=== PATIENT | male | born 1965 | race Caucasian/White ===

== ENCOUNTER 2020-04-22 10:50 | Observation (INO) ==
[2020-04-22 11:15] LABS: Basophils # (auto) 0.05 K/uL (0-0.2); Basophils % (auto) 0.9 %; Eosinophils # (auto) 0.08 K/uL (0-0.5); Eosinophils % (auto) 1.4 %; Hematocrit (blood only) 45.6 % (42-52); Immature Granulocytes # (auto) 0.01 K/uL (0.00-0.02); Immature Granulocytes % (auto) 0.2 %; Lymphocytes % (auto) 27.4 %; Mean Corpuscular Hemoglobin 30.4 pg (25-34); Mean Corpuscular Hgb Conc 35.1 g/dL (32-36); Mean Corpuscular Volume 86.5 fL (80-100); Mean Platelet Volume 9.2 fL (7.4-10.4); Monocytes # (auto) 0.59 K/uL (0.11-0.59); Monocytes % (auto) 10.1 %; Platelet Count 253 K/uL (130-400); RDW Coefficient of Variation 12.9 % (11.5-14.5); RDW Standard Deviation 40.9 fL (36.4-46.3); Red Blood Count 5.27 M/uL (4.7-6.1); White Blood Count 5.83 K/uL (4.8-10.8)
--- NOTE | 2020-04-22 11:21 | Emergency Department Note ---
Impression & Plan Chest pain ED Provider Note NAME: CINDY MCKEON AGE: 55 SEX: M : 1965 ARRIVES VIA: Walk-In INFORMANT: Patient, ED PROVIDER(S): Beni Carrillo MD Chief Complaint: Chest pain HPI: She does present with a concern for chest pain. The patient states that he was hiking up a steep incline yesterday and did describe some left-sided chest discomfort that did radiate to the left arm. Described as sharp in nature. No nausea or vomiting, fevers, chills, diaphoresis. The patient denies any history of heart or lung disease. The patient is a non-smoker no recent surgeries or procedures and no lower extremity swelling. Patient denies any history of blood clots in the legs of the lungs. The patient does have family history of heart attack in his father as well as stroke in his brother before the age of 65. Patient currently has no chest pains. The patient states his initial bout of chest pain lasted approximate 1 hour and dissipated after he stopped hiking. It was not completely gone at that time but was much improved. The patient today has no chest pains. No dietary changes. ROS: See HPI for pertinent positives and negatives. A total of 10 systems were reviewed and otherwise negative. Past medical history: See below Surgical history: See below Social history: See below Physical Exam: GENERAL: Wearing glasses and a mask. NAD, non-toxic. EYE EXAM: Normal conjunctiva. PERRL, no anisocoria and EOM's grossly intact w/o pain. NECK: Supple, no nuchal rigidity, no adenopathy, non-tender. No signs of meningismus. LUNGS: Clear to auscultation. Normal chest wall mechanics. HEART: NSR, no MRG. ABDOMEN: Abdomen soft, non-tender, normo-active bowel sounds, no masses, no rebound or guarding. BACK: No CVA TTP. SKIN: No rashes and no bruising. UPPER EXTREMITIES: Upper extremities are grossly normal. LOWER EXTREMITIES: Grossly normal, no edema. NEURO EXAM: A&O x3, cranial nerves II-XII grossly intact, normal speech, moves all 4 extremities on command w/o issue. Differential diagnoses: Cardiac ischemia, aortic dissection, pulmonary embolism, pneumothorax, pneumonia, pericarditis, myocarditis, esophageal rupture, GERD, cholecystitis, pancreatitis, musculoskeletal, as well as other pathologies. Course: Patient was seen and evaluated the bedside. Full history physical exam was performed. EKG: Indication: Chest pains Normal sinus rhythm, rate of 60, normal intervals, normal axis, T wave inversion in lead III, possible T wave inversion in V2. Slight depressions in the lateral leads. No priors for comparison. Imaging Studies: Radiology results as stated below per my review in the radiologist's interpretation: SINGLE VIEW CHEST CLINICAL HISTORY: Atypical chest pain. FINDINGS: An AP, portable, upright chest radiograph is compared obtained. No prior studies are available for comparison at the time of dictation. The cardiomediastinal silhouette is unremarkable. The lungs and pleural spaces are clear. No pneumothorax is seen. The bony thorax is grossly intact. IMPRESSION: No active disease in the chest. ACT 112: Negative or not required by law. Electronically signed by: José Antonio Sagastume M.D. 04/22/2020 11:45 AM Dictated: 04/22/20 1145 Transcribed: 04/22/20 1145 Cardiac monitoring: An order was placed for continuous cardiac monitoring. The monitor shows a rate of 65 with sinus rhythm. MDM: Patient does present with concern for chest pains. Blood work is obtained along with an EKG troponin chest x-ray. The patient has no active symptoms. The patient did take a baby aspirin which he does take preventatively this morning. Patient's EKG does show some T wave inversions and depressions. The patient does not have any active chest pains. Troponin is undetectable. Patient's other blood work is unremarkable. Patient does have a heart score of 6 and believe the patient may benefit from inpatient treatment and testing at this time. I did speak the on-call hospitalist agreed to further evaluate treat the patient. Patient was admitted to medicine service. Patient was ordered the rest of a full dose aspirin. No active chest pains. Patient was told to advise staff if the patient does have a recurrence of chest pain. Patient understood. Past Med/Surg History Medical History H/O: HTN (hypertension) Surgical History No pertinent past surgical history Family History (Updated 09/19/20 @ 14:33 by Amina Adrian DO) Other Heart disease Hypertension Stroke Social History (Updated 04/22/20 @ 14:34 by Amina Adrian DO) Smoking Status: Former smoker Age Quit Using Tobacco: 20; Years Smoked: 3; Number of Years Since Quit: 35; Hx Alcohol Use: No Hx Substance Use: No Preferred Language: Hungarian Communication Ability: Effective Beliefs That Will Affect Care: None marital status: Current Living Situation: Spouse current occupational status: employed current occupation: machinest Other Information That Helps Us Care for You: No Feels Safe at Home: Yes Safety Concerns: Feels Safe At This Time Physical Activity Frequency: Daily Allergies Allergies Allergy/AdvReac Type Severity Reaction Status Date / Time No Known Allergies Allergy Unverified 04/22/20 12:22 Home Meds Home Medications Medication Instructions Recorded Confirmed amlodipine [Norvasc] 10 mg PO QAM 04/18/19 04/22/20 aspirin 81 mg PO QAM 04/18/19 04/22/20 multivitamin 1 tab PO QAM 04/18/19 04/22/20 losartan 50 mg PO QAM 04/22/20 04/22/20 Results & Data (ED) Vital Signs Vital Signs - 24 hr 04/22/20 10:51 04/22/20 11:09 04/22/20 11:14 Temperature 36.7 C Temperature Source Oral Oral Pulse Rate 65 63 Pulse Rate [Apical] Pulse Rhythm Regular Pulse Strength Normal Respiratory Rate 16 14 Respiratory Effort / Characteristics Non-Labored Respiratory Depth Normal Respiratory Pattern Regular Blood Pressure 133/99 Blood Pressure [Left Arm] Blood Pressure Mean 110 Blood Pressure Mean [Left Arm] Blood Pressure Position Sitting Pulse Oximetry 100 Oxygen Delivery Method Room Air Room Air Sepsis Recent Fever Within 48 Hours No Sepsis New/Unexplained Change in Mental Status N/A Sepsis Action Taken by Nursing No Action Required 04/22/20 11:30 04/22/20 12:00 04/22/20 12:30 Temperature Temperature Source Pulse Rate 61 75 72 Pulse Rate [Apical] Pulse Rhythm Pulse Strength Respiratory Rate 17 17 15 Respiratory Effort / Characteristics Respiratory Depth Respiratory Pattern Blood Pressure Blood Pressure [Left Arm] Blood Pressure Mean Blood Pressure Mean [Left Arm] Blood Pressure Position Pulse Oximetry Oxygen Delivery Method Sepsis Recent Fever Within 48 Hours Sepsis New/Unexplained Change in Mental Status Sepsis Action Taken by Nursing 04/22/20 12:45 04/22/20 12:51 04/22/20 13:00 Temperature Temperature Source Pulse Rate 82 70 67 Pulse Rate [Apical] Pulse Rhythm Pulse Strength Respiratory Rate 14 7 L 15 Respiratory Effort / Characteristics Respiratory Depth Respiratory Pattern Blood Pressure 196/106 H 168/108 H 160/97 H Blood Pressure [Left Arm] Blood Pressure Mean 129 124 125 Blood Pressure Mean [Left Arm] Blood Pressure Position Pulse Oximetry Oxygen Delivery Method Sepsis Recent Fever Within 48 Hours Sepsis New/Unexplained Change in Mental Status Sepsis Action Taken by Nursing 04/22/20 13:25 04/22/20 13:30 04/22/20 13:31 Temperature Temperature Source Pulse Rate 67 66 Pulse Rate [Apical] 70 Pulse Rhythm Pulse Strength Respiratory Rate 16 15 Respiratory Effort / Characteristics Respiratory Depth Respiratory Pattern Blood Pressure 174/106 H Blood Pressure [Left Arm] 160/97 H Blood Pressure Mean 135 Blood Pressure Mean [Left Arm] 118 Blood Pressure Position Pulse Oximetry Oxygen Delivery Method Sepsis Recent Fever Within 48 Hours Sepsis New/Unexplained Change in Mental Status Sepsis Action Taken by Nursing 04/22/20 14:00 04/22/20 14:30 Temperature Temperature Source Pulse Rate 74 77 Pulse Rate [Apical] Pulse Rhythm Pulse Strength Respiratory Rate 18 16 Respiratory Effort / Characteristics Respiratory Depth Respiratory Pattern Blood Pressure 170/114 H 155/105 H Blood Pressure [Left Arm] Blood Pressure Mean 131 120 Blood Pressure Mean [Left Arm] Blood Pressure Position Pulse Oximetry Oxygen Delivery Method Sepsis Recent Fever Within 48 Hours Sepsis New/Unexplained Change in Mental Status Sepsis Action Taken by [facility] Medications Current Medication List: was personally reviewed by me Laboratory Data Attestation: I reviewed the patient's lab results. Result diagrams: 04/22/20 11:07 04/22/20 11:07 Lab Results 04/22/20 04/22/20 04/22/20 Range/Units 11:07 11:07 11:07 WBC 5.83 (4.8-10.8) K/uL RBC 5.27 (4.7-6.1) M/uL Hgb 16.0 (14.0-18.0) g/dL Hct 45.6 (42-52) % MCV 86.5 (80-100) fL MCH 30.4 (25-34) pg MCHC 35.1 (32-36) g/dL RDW Std Deviation 40.9 (36.4-46.3) fL RDW Coeff of Daphnie 12.9 (11.5-14.5) % Plt Count 253 (130-400) K/uL MPV 9.2 (7.4-10.4) fL Immature Gran % (Auto) 0.2 % Neut % (Auto) 60.0 % Lymph % (Auto) 27.4 % [place] % (Auto) 10.1 % Eos % (Auto) 1.4 % Baso % (Auto) 0.9 % Neut # (Auto) 3.50 (1.4-6.5) K/uL Lymph # (Auto) 1.60 (1.2-3.4) K/uL [place] # (Auto) 0.59 (0.11-0.59) K/uL Eos # (Auto) 0.08 (0-0.5) K/uL Baso # (Auto) 0.05 (0-0.2) K/uL Immature Gran # (Auto) 0.01 (0.00-0.02) K/uL PT 10.8 (9.0-12.0) Seconds INR 1.0 (0.9-1.1) APTT 29.1 (21.0-31.0) Seconds PTT Ratio 1.0 Sodium 139 (136-145) mmol/L Potassium 3.6 (3.5-5.1) mmol/L Chloride 108 H (98-107) mmol/L Carbon Dioxide 28 (21-32) mmol/L Anion Gap 3.0 (3-11) BUN 12 (7-18) mg/dl Creatinine 1.00 (0.6-1.4) mg/dl Est Cr Clr Drug Dosing 94.0 ml/min Est GFR ( Amer) 97.8 Est GFR (Non-Af Amer) 84.4 BUN/Creatinine Ratio 11.8 (10-20) Glucose 95 (70-99) mg/dl Calcium 8.7 (8.5-10.1) mg/dl Magnesium 2.2 (1.8-2.4) mg/dl Total Bilirubin 0.7 (0.2-1) mg/dl AST 18 (15-37) U/L ALT 36 (12-78) U/L Alkaline Phosphatase 51 (45-117) U/L Troponin I < 0.015 (0-0.045) ng/ml Total Protein 7.8 (6.4-8.2) gm/dl Albumin 4.0 (3.4-5.0) gm/dl Globulin 3.8 (2.5-4.0) gm/dl Albumin/Globulin Ratio 1.1 (0.9-2) Lipase 202 (73-393) U/L Administered Medications Discontinued Medications Aspirin (Aspirin Chew 324 Mg) 243 mg PO NOW STA Stop: 04/22/20 12:55 Last Admin: 04/22/20 13:23 Dose: 243 mg Documented by: [id number] Discharge Plan Visit Data Chief Complaint: Chest Pain Stated Complaint: CHEST PAIN HX HIGH BLOOD PRESSURE ED Provider: Beni Carrillo Discharge Problem: Chest pain Discharge Instructions Interventions: ED Discharge Assessment Last Done: 04/22/20 15:16 Forms Stand Alone Forms: [facility] [employer] Prescriptions Prescriptions: No Action multivitamin Tablet 1 tab PO QAM RF: 0 aspirin 81 mg Tablet,Delayed Release (Dr/Ec) 81 mg PO QAM RF: 0 amlodipine [Norvasc] 10 mg tablet 10 mg PO QAM RF: 0 losartan 50 mg tablet 50 mg PO QAM RF: 0 Referrals Referrals: PCP,NO [Primary Care Provider] - Discharge Problem: Chest pain Qualifiers: Chest pain type: unspecified Qualified Code(s): R07.9 - Chest pain, unspecified
[2020-04-22 11:25] LABS: Partial Thromboplastin Time 29.1 Seconds (21.0-31.0); Prothrombin Time 10.8 Seconds (9.0-12.0)
[2020-04-22 11:30] LABS: Alanine Aminotransferase 36 U/L (12-78); Aspartate Aminotransferase 18 U/L (15-37); BUN Creatinine Ratio 11.8 (10-20); Blood Urea Nitrogen 12 mg/dl (7-18); Calcium 8.7 mg/dl (8.5-10.1); Carbon Dioxide 28 mmol/L (21-32); Chloride 108 mmol/L (98-107); Est GFR (African American) 97.8; Est GFR (Non-African American) 84.4; Glucose 95 mg/dl (70-99); Lipase 202 U/L (73-393); Magnesium 2.2 mg/dl (1.8-2.4); Potassium 3.6 mmol/L (3.5-5.1); Sodium 139 mmol/L (136-145)
[2020-04-22 11:35] LABS: Albumin Globulin Ratio 1.1 (0.9-2); Alkaline Phosphatase 51 U/L (45-117); Bilirubin,Total 0.7 mg/dl (0.2-1); Globulin 3.8 gm/dl (2.5-4.0); Total Protein 7.8 gm/dl (6.4-8.2); Troponin I < 0.015 ng/ml (0-0.045)
--- NOTE | 2020-04-22 11:47 | XRay Report ---
SINGLE VIEW CHEST CLINICAL HISTORY: Atypical chest pain. FINDINGS: An AP, portable, upright chest radiograph is compared obtained. No prior studies are availa ble for comparison at the time of dictation. The cardiomediastinal silhouette is unremarkable. The l ungs and pleural spaces are clear. No pneumothorax is seen. The bony thorax is grossly intact. IMPRESSION: No active disease in the chest. ACT 112: Negative or not required by law. Electronically signed by: José Antonio Sagastume M.D. 04/22/2020 11:45 AM
[2020-04-22] MEDS ORDERED: ASPIRIN CHEW 324 MG PO STA (12:54)
--- NOTE | 2020-04-22 14:47 | History & Physical Report ---
Date of Service April 22, 2020 Assessment & Plan (1) Chest pain: Vidal Senior is a 55 yo male who presents to the hospital with c/o sharp left sided CP radiating to the left arm that lasted for 1 hour yesterday. Chest pain EKG in ED w/o acute findings Troponin negative x2. Will trend one more troponin. Cardiac stress test tomorrow. Tylenol prn for pain NTG prn for pain Will check lipid panel tomorrow morning. Encouraged patient to establish care with PCP. Hypertension Continue home amlodipine 10mg po qAM and home losartan 50mg po qAM. GERD Stable FEN/GI: Regular diet DVT PPx: Regular ambulation Disposition: Medsurge/tele Code Status: Full Code (2) GERD (gastroesophageal reflux disease): (3) Hypertension: History of Present Illness Primary Care Provider: NO PCP Vidal Senior is a 55 yo male who presented to the ED with complaint of CP. Patient reports that yesterday afternoon, around 12:00 pm, he had a sudden onset of sharp left sided CP just over the left pectoral muscle while hiking (he had been hiking for approximately 4 hours at that time). The pain radiated to the left arm; he clarifies that the arm pain was not sharp and was more dull compared to the CP. The CP was exacerbated with movement; he is unsure if deep inspiration changed the pain. Patient told his about yesterday's episode which is what prompted evaluation today. Patient reports being very physically active at baseline and yesterday's hike was not more difficult than usual. The pain resolved spontaneously about 1 hour after onset of pain. He did not have any associated SOB, nausea, vomiting, or MURPHY. Patient also denies changes in his vision, blurred vision, fever, chills, loss of taste, loss of smell, abdominal pain, change in bowel habits, leg pain, or leg swelling. Patient does admit to a hx of similar episodes in the past, sometimes occurring with increased stress/anxiety, and other times occurring with exercise. Patient did not tell his about the prior episodes and he was never medically evaluated for the prior episodes. He has a hx of GERD, described as burning midsternal CP w/ associated cough that is exacerbated with eating foods late a night; yesterday's episode was not similar to the hx of GERD. Patient's PMHx also includes HTN that is controlled with amlodipine 10mg po qAM and losartan 50mg po qAM. He does not regularly follow with PCP nor has he had recent labs. Patient is a former tobacco smoker, smoking for less than a few years, and quit ~35 years ago. No alcohol use. No other drug use. Allergies Allergy/AdvReac Type Severity Reaction Status Date / Time No Known Allergies Allergy Unverified 04/22/20 12:22 Home Medications Home Medications Medication Instructions Recorded Confirmed Type amlodipine [Norvasc] 10 mg PO QAM 04/18/19 04/22/20 History aspirin 81 mg PO QAM 04/18/19 04/22/20 History multivitamin 1 tab PO QAM 04/18/19 04/22/20 History losartan 50 mg PO QAM 04/22/20 04/22/20 History Past Med/Surg History Medical History H/O: HTN (hypertension) Surgical History No pertinent past surgical history Family History (Updated 04/22/20 @ 14:33 by Amina Adrian DO) Other Heart disease Hypertension Stroke Social History (Updated 04/22/20 @ 14:34 by Amina Adrian DO) Smoking Status: Former smoker Age Quit Using Tobacco: 20; Years Smoked: 3; Number of Years Since Quit: 35; Hx Alcohol Use: No Hx Substance Use: No Preferred Language: Turkmen Communication Ability: Effective Beliefs That Will Affect Care: None marital status: Current Living Situation: Spouse current occupational status: employed current occupation: machinest Other Information That Helps Us Care for You: No Feels Safe at Home: Yes Safety Concerns: Feels Safe At This Time Physical Activity Frequency: Daily Review of Systems 2 Constitutional: no fever, no chills and no body aches Eyes: no diplopia and no worsening vision Ear, Nose, Mouth, Throat: no hearing loss, no sore throat and no problem reported Denies loss of smell, denies loss of taste Respiratory: no cough, no change in sputum, no dyspnea and no dyspnea on exertion Cardiovascular: + chest pain with activity (resolved); no dyspnea, no lightheadedness and no calf pain Gastrointestinal: no abdominal pain, no nausea, no vomiting, no change in bowel habits and no diarrhea/loose stools Musculoskeletal: no joint pain and no swelling Neurologic: no headache(s) Physical Exam Physical Exam: GENERAL: No acute distress. Well developed and well nourished. Vital signs reviewed as above. A/O x3. EYES: PERRLA. EOMI. Anicteric sclerae. HENT: Moist mucous membranes. No pharyngeal erythema or exudates. No cervical lymphadenopathy. RESPIRATORY: Clear to auscultation bilaterally. No wheezing, rales, or rhonchi. CARDIOVASCULAR: Regular rate and rhythm. No murmurs. ABDOMEN: Soft, non-tender and non-distended. No palpable masses. Normal bowel sounds. EXTREMITIES: No edema. Non-tender. SKIN: Warm, dry. No rashes or lesions. NEUROLOGIC: No focal neurological deficits. CN II-XII grossly intact. Normal [id number] bilaterally. Normal rapid alternating movements. PSYCHIATRIC: Cooperative. Appropriate mood and affect. Results & Data Results & Data ([facility]) Vital Signs (Past 12 Hours) Vital Signs Temp Pulse Pulse Resp BP BP Pulse Ox 04/22/20 13:30 67 15 174/106 H 04/22/20 13:25 70 16 160/97 H 04/22/20 13:00 67 15 160/97 H 04/22/20 12:51 70 7 L 168/108 H 04/22/20 12:45 82 14 196/106 H 04/22/20 12:30 72 15 04/22/20 12:00 75 17 04/22/20 11:30 61 17 04/22/20 11:14 63 14 04/22/20 10:51 36.7 C 65 16 133/99 100 Laboratory Results 04/22/20 04/22/20 04/22/20 Range/Units 11:07 11:07 11:07 WBC 5.83 (4.8-10.8) K/uL RBC 5.27 (4.7-6.1) M/uL Hgb 16.0 (14.0-18.0) g/dL Hct 45.6 (42-52) % MCV 86.5 (80-100) fL MCH 30.4 (25-34) pg MCHC 35.1 (32-36) g/dL RDW Std Deviation 40.9 (36.4-46.3) fL RDW Coeff of Daphnie 12.9 (11.5-14.5) % Plt Count 253 (130-400) K/uL MPV 9.2 (7.4-10.4) fL Immature Gran % (Auto) 0.2 % Neut % (Auto) 60.0 % Lymph % (Auto) 27.4 % [place] % (Auto) 10.1 % Eos % (Auto) 1.4 % Baso % (Auto) 0.9 % Neut # (Auto) 3.50 (1.4-6.5) K/uL Lymph # (Auto) 1.60 (1.2-3.4) K/uL [place] # (Auto) 0.59 (0.11-0.59) K/uL Eos # (Auto) 0.08 (0-0.5) K/uL Baso # (Auto) 0.05 (0-0.2) K/uL Immature Gran # (Auto) 0.01 (0.00-0.02) K/uL PT 10.8 (9.0-12.0) Seconds INR 1.0 (0.9-1.1) APTT 29.1 (21.0-31.0) Seconds PTT Ratio 1.0 Sodium 139 (136-145) mmol/L Potassium 3.6 (3.5-5.1) mmol/L Chloride 108 H (98-107) mmol/L Carbon Dioxide 28 (21-32) mmol/L Anion Gap 3.0 (3-11) BUN 12 (7-18) mg/dl Creatinine 1.00 (0.6-1.4) mg/dl Est Cr Clr Drug Dosing 94.0 ml/min Est GFR ( Amer) 97.8 Est GFR (Non-Af Amer) 84.4 BUN/Creatinine Ratio 11.8 (10-20) Glucose 95 (70-99) mg/dl Calcium 8.7 (8.5-10.1) mg/dl Magnesium 2.2 (1.8-2.4) mg/dl Total Bilirubin 0.7 (0.2-1) mg/dl AST 18 (15-37) U/L ALT 36 (12-78) U/L Alkaline Phosphatase 51 (45-117) U/L Troponin I < 0.015 (0-0.045) ng/ml Total Protein 7.8 (6.4-8.2) gm/dl Albumin 4.0 (3.4-5.0) gm/dl Globulin 3.8 (2.5-4.0) gm/dl Albumin/Globulin Ratio 1.1 (0.9-2) Lipase 202 (73-393) U/L Supervising Physician Co-Signing Physician Notes I personally examined the patient and verified all antoine points of history and exam, discussed case, and agree with decision making with Dr Adrian chest pain, L sided sharp sometimes with exertion but not all the time with exertion vitals noted nad heent nc at mmm breathing unlabored no accessory msucles good effort msk/ost - L sided rib ~rib 4 inhaled, somewhat tender to push on EKG, labs noted CP - r/o ACS -doubt [place], but concering for angina due to exertional nature and male/age/HTN/unknown lipids -reassuring that it might not be angina due to rib findings and sx could be explainable by rib dysfunction as well -troponins, stress echo in AM otherwise as above
[2020-04-22] MEDS ORDERED: ALUMINUM/MAGNESIUM SUSP 30 ML UDC PO PRN (15:56)
[2020-04-22] MEDS ORDERED: POLYETHYLENE (MIRALAX) 17 GM PACK PO PRN (15:56)
[2020-04-22] MEDS ORDERED: ACETAMINOPHEN 325 MG TAB PO PRN (15:56)
[2020-04-22] MEDS ORDERED: NITROGLYCERIN SL 0.4 MG/TAB TAB SL PRN (15:56)
[2020-04-22] MEDS ORDERED: ONDANSETRON INJ 2 MG/ML 2 ML VIAL IV PRN (15:56)
[2020-04-22] MEDS ORDERED: MAGNESIUM HYDROXIDE SUSP 30 ML UDC PO PRN (15:56)
--- NOTE | 2020-04-22 16:56 | Electrocardiogram Report ---
Test Reason : Blood Pressure : / mmHG Vent. Rate : 060 BPM Atrial Rate : 060 BPM P-R Int : 162 ms QRS Dur : 102 ms QT Int : 398 ms P-R-T Axes : 045 003 030 degrees QTc Int : 398 ms Normal sinus rhythm No previous ECGs available Confirmed by Farhad Narvaez ([id number]) on 04/22/2020 4:56:14 PM Referred By: REFERRED SELF Confirmed By:Mateus Narvaez
[2020-04-22] MEDS ORDERED: HydrALAZINE HCL 20 MG/ML VIAL IV PRN (19:30)
--- NOTE | 2020-04-22 20:31 | Billing Data ---
Date of Service April 22, 2020 Coding Level of Care Code 48549 OBS Care - Level 3
[2020-04-23 06:25] LABS: Chol HDL Ratio 4; Cholesterol 173 mg/dl (0-200); HDL Cholesterol 44 mg/dl; LDL Cholesterol Calculated 110 mg/dl; Triglycerides 97 mg/dl (0-150); VLDL Cholesterol 19 mg/dl
[2020-04-23] MEDS ORDERED: LOSARTAN POTASSIUM 50 MG TAB PO SCH (09:00)
[2020-04-23] MEDS ORDERED: AMLODIPINE BESYLATE 5 MG TAB PO SCH (09:00)
[2020-04-23] MEDS ORDERED: ASPIRIN 81 MG ECTAB PO SCH (09:00)
[2020-04-23] MEDS ORDERED: MULTIVITAMIN TAB PO SCH (09:00)
--- NOTE | 2020-04-23 10:11 | XCELERA ---
[id number]
--- NOTE | 2020-04-23 11:43 | Discharge Summary ---
Date of Service April 23, 2020 Admission HPI Per Admitting Provider Vidal Senior is a 55 yo male who presented to the ED with complaint of CP. Patient reports that yesterday afternoon, around 12:00 pm, he had a sudden onset of sharp left sided CP just over the left pectoral muscle while hiking (he had been hiking for approximately 4 hours at that time). The pain radiated to the left arm; he clarifies that the arm pain was not sharp and was more dull compared to the CP. The CP was exacerbated with movement; he is unsure if deep inspiration changed the pain. Patient told his about yesterday's episode which is what prompted evaluation today. Patient reports being very physically active at baseline and yesterday's hike was not more difficult than usual. The pain resolved spontaneously about 1 hour after onset of pain. He did not have any associated SOB, nausea, vomiting, or MURPHY. Patient also denies changes in his vision, blurred vision, fever, chills, loss of taste, loss of smell, abdominal pain, change in bowel habits, leg pain, or leg swelling. Patient does admit to a hx of similar episodes in the past, sometimes occurring with increased stress/anxiety, and other times occurring with exercise. Patient did not tell his about the prior episodes and he was never medically evaluated for the prior episodes. He has a hx of GERD, described as burning midsternal CP w/ associated cough that is exacerbated with eating foods late a night; yesterday's episode was not similar to the hx of GERD. Patient's PMHx also includes HTN that is controlled with amlodipine 10mg po qAM and losartan 50mg po qAM. He does not regularly follow with PCP nor has he had recent labs. Patient is a former tobacco smoker, smoking for less than a few years, and quit ~35 years ago. No alcohol use. No other drug use. Admission Exam Per Admitting Provider GENERAL: No acute distress. Well developed and well nourished. Vital signs reviewed as above. A/O x3. EYES: PERRLA. EOMI. Anicteric sclerae. HENT: Moist mucous membranes. No pharyngeal erythema or exudates. No cervical lymphadenopathy. RESPIRATORY: Clear to auscultation bilaterally. No wheezing, rales, or rhonchi. CARDIOVASCULAR: Regular rate and rhythm. No murmurs. ABDOMEN: Soft, non-tender and non-distended. No palpable masses. Normal bowel sounds. EXTREMITIES: No edema. Non-tender. SKIN: Warm, dry. No rashes or lesions. NEUROLOGIC: No focal neurological deficits. CN II-XII grossly intact. Normal [id number] bilaterally. Normal rapid alternating movements. PSYCHIATRIC: Cooperative. Appropriate mood and affect. Principal Diagnosis chest pain, hypertension Discharge Exam GENERAL: No acute distress. Well developed and well nourished. Vital signs reviewed as above. A/O x3. HENT: Moist mucous membranes. RESPIRATORY: Clear to auscultation bilaterally. No wheezing, rales, or rhonchi. CARDIOVASCULAR: Regular rate and rhythm. No murmurs. ABDOMEN: Soft, non-tender and non-distended. No palpable masses. Normal bowel sounds. EXTREMITIES: No edema. Non-tender. NEUROLOGIC: No focal neurological deficits. PSYCHIATRIC: Cooperative. Appropriate mood and affect. Discharge Data Allergies Allergy/AdvReac Type Severity Reaction Status Date / Time No Known Allergies Allergy Unverified 04/22/20 12:22 Consultations 04/22/20 13:23 ED Decision to Admit Stat Hospital Course (1) Chest pain: Vidal Senior is a 55 yo male who presents to the hospital with c/o sharp left sided CP radiating to the left arm that lasted for 1 hour yesterday (04/21/20). Chest pain EKG in ED w/o acute findings Troponin negative x3. Cardiac stress test 04/23/20 -- LV systolic function normal, RV systolic pre ssure normal, normal exercise echo w/o evidence of inducible ischemia, hypertensive response to exercise, test was discontinued due to development of significant HTN. Tylenol prn for pain. NTG prn for pain. Fasting lipid profile 04/23 -- Total chol 173, Trig 97, LDL 110, HDL 44. - Recommend that patient improve diet, decrease fatty food intake, and repeat lipid profile in 6 months. Component of anxiety revolving around 's chronic pain/medical conditions. Discussed strategies for stress relief (hiking, listening to music, meditation). Recommend f/u as outpatient and may consdier therapy/counseling. Encouraged patient to establish care with PCP. Hypertension Continued home amlodipine 10mg po qAM and home losartan 50mg po qAM. Upon d/c, will continue home amlodipine 10mg po qAM but will increase home losartan to 100mg po qAM. GERD Stable FEN/GI: Regular diet DVT PPx: Regular ambulation Disposition: d/c home Code Status: Full Code Total Time Total Time Spent Total Time Spent (In Minutes): >30 Discharge Plan Discharge Items Patient Disposition: Home - Self-Care Reason For Visit: CHEST PAIN Discharge Diagnosis: chest pain Condition on Discharge: Good Activity: Per Instructions section Non-emergency contact: Primary Care Provider Call non-emergency contact if: you have any medication questions, your symptoms worsen, your pain is not controlled, your pain is worsening and you have a fever Follow-up/Referrals: Amina Adrian DO [Resident] - PCP,NO [Primary Care Provider] - Diet: Heart Healthy Addtl Attending Provider Instructions: Vidal Senior, It was our pleasure caring for you at [facility] from 04/22/20 to 04/23/20. You were admitted for chest pain work up due to an episode of sharp chest pain that lasted for 1 hour after hiking on 04/21/20. Workup in the ED was negative for an acute heart attack. We continued to monitor you overnight. Your cardiac heart enzymes remained negative and were checked a total of 3 times. You did not express recurrent chest pain during admission. On 04/23/20, you had a cardiac exercise stress test -- overall, the test was normal but you did have significant high blood pressure during the test. We recommend that you continue the amlodipine 10mg by mouth every morning. Additionally, we would like to increase your losartan to 100mg by mouth every morning (prior to this increase, you were taking losartan 50mg by mouth every morning) We also checked your cholesterol panel during admission. Overall, the cholesterol levels were okay. We do recommend that you work on improving your diet, eating less fatty foods, and we would like for your cholesterol to be rechecked in 6 months. During discussion about discharge, it was brought to light that a lot of your stressors seem to be anxiety related to your 's health and medical needs. We understand that this is a big stressor. We do recommend that you try to acknowledge these stressors. It is important for you to care for yourself as well. As we discussed, we recommend that you work on some of the stress relief activities (such as hiking, listening to music, and meditation). We also discussed the possibility of seeking counseling or therapy - again, there is no shame in this but they can help with strategies to manage the stress. We encourage you to follow up and establish care with a primary care physician. Dr. Adrian would be happy to have you follow up with her in the outpatient office located next to the hospital. Pending Studies at Discharge: No Stand-Alone Forms: My [facility] [employer], Smoking Cessation Medications and DC Order Prescriptions: Continued multivitamin Tablet 1 tab PO QAM RF: 0 aspirin 81 mg Tablet,Delayed Release (Dr/Ec) 81 mg PO QAM RF: 0 amlodipine [Norvasc] 10 mg tablet 10 mg PO QAM RF: 0 Changed losartan 50 mg tablet 100 mg PO QAM Qty: 30 RF: 2 Discharge Orders: Discharge Order (Routine); Ordered 04/23/20 Ordered By: Amina Adrian Admission Data Admit Date/Time: 04/22/20 15:52 Attending Provider: Kaz Gaffney Admit Provider: Kaz Gaffney Primary Care Provider: PCP,NO Other Providers: Alec Herrmann Other Interventions: Discharge Summary Assessment (RN) Last Done: 04/23/20 14:15 Supervising Physician Co-Signing Physician Notes I personally examined the patient and verified all antoine points of history and exam, discussed case, and agree with decision making with Dr Adrian feeling better as far as chest pain. brings up that he has significant stressors - on further discussion she has some health issues and that leads him to always feel a lot of stress on how to take care of her/how to help/how to fix things/etc vitals noted nad heent nc at mmm breathing unlabored no accessory muscles good effort stress echo noted CP - r/o ACS -trops neg, stress echo reassuring - and rib dysfunction as alternate explanation - almost certainly not cardiac uncontrolled HTN -increase losartan, more vigilant home monitoring stress -extensive discussions/counselling to the best of my ability otherwise as above, stable/safe for home
--- NOTE | 2020-04-23 16:35 | Billing Data ---
Date of Service April 23, 2020 Coding Level of Care Code 76474 OBS Care - Discharge
== END 2020-04-23 14:30 | disposition home or self-care (01) ==
LOC: 2N 10:50 → ED 10:50 → 2N 15:16
DX: I10 Essential (primary) hypertension; K21.9 Gastro-esophageal reflux disease without esophagitis; Z79.82 Long term (current) use of aspirin; R07.89 Other chest pain; Z82.49 Family history of ischemic heart disease and other diseases of the circulatory system; Z79.899 Other long term (current) drug therapy; Z87.891 Personal history of nicotine dependence